=== PATIENT | female | born 2000 | race African-American/Black ===

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

== ENCOUNTER 2024-01-22 09:09 | Outpatient (CLI) | payer OTHER | END 2024-01-22 09:17 | disposition home or self-care (01) | LOC: SONOGRAMA 09:09 | PROVIDERS: ATTEND General Practice | DX: Z02.79 Encounter for issue of other medical certificate (principal); R23.9 Unspecified skin changes; R21 Rash and other nonspecific skin eruption; N91.0 Primary amenorrhea ==